=== PATIENT | female | born 1955 | race Caucasian/White ===

== ENCOUNTER 2017-09-19 08:39 | Outpatient (CLI) | payer OTHER ==
[~2017-09-19 08:39] MED LIST: FUROSEMIDE20 MG PO; GLIPIZIDE5 MG PO; HEMATRON DROPS30 ML PO; HYZAAR 50-12.1 UDTAB PO; SYNTHROID50 MCG PO; SYNTHROID88 MCG; VERAPAMIL HCL240 M1 PO
== END 2017-09-19 08:56 | disposition home or self-care (01) ==
LOC: TOM 08:39
DX: N20.0 Calculus of kidney (principal)